=== PATIENT | female | born 2000 | race Caucasian/White ===

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

== ENCOUNTER → 2022-09-30 | Outpatient (CLI) | payer BC ==
--- NOTE | 2022-10-01 11:11 | CA ---
Transthoracic Echo Report Name: Gerson Garcia Age: 22 Gender: F : 2000 Exam Date: 09/30/2022 10:09 Exam Location: [facility] Ht (in): 64 Wt (lb): 113 Ordering Physician: Hesham Whiting MD Attending/Referring Phys: Diana Gaming PAC [employer] Tammy Negron RDCS Procedure CPT: Indications: R42 dizziness and giddiness Cardiac Hx: Technical Quality: Fair Contrast 1: Total Dose (mL): Contrast 2: Total Dose (mL): MEASUREMENTS (Male / Female) Normal Values 2D ECHO LV Diastolic Diameter PLAX 3.6 cm 4.2 - 5.9 / 3.9 - 5.3 cm LV Systolic Diameter PLAX 2.5 cm IVS Diastolic Thickness 0.7 cm 0.6 - 1.0 / 0.6 - 0.9 cm LVPW Diastolic Thickness 0.7 cm 0.6 - 1.0 / 0.6 - 0.9 cm LV Relative Wall Thickness 0.4 RV Internal Dim ED PLAX 3.6 cm LA Volume 24.0 cm??? 18 - 58 / 22 - 52 cm??? M-MODE Aortic Root Diameter MM 2.2 cm LA Systolic Diameter MM 2.5 cm LA Ao Ratio MM 1.1 AV Cusp Separation MM 1.9 cm DOPPLER AV Peak Velocity 120.6 cm/s AV Peak Gradient 5.8 mmHg AV Mean Velocity 85.9 cm/s AV Mean Gradient 3.3 mmHg AV Velocity Time Integral 24.5 cm LVOT Peak Velocity 90.9 cm/s LVOT Peak Gradient 3.3 mmHg LVOT Velocity Time Integral 17.9 cm MV Area PHT 3.5 cm??? Mitral E Point Velocity 102.6 cm/s Mitral A Point Velocity 49.3 cm/s Mitral E to A Ratio 2.1 MV Deceleration Time 216.2 ms MV E' Velocity 11.5 cm/s Mitral E to MV E' Ratio 8.9 FINDINGS Left Ventricle Normal Left ventricular size, wall thickness, systolic function with no obvious regional wall motion abnormalities. Normal Left ventricular diastolic filling pattern. Left ventricular ejection fraction is estimated at 55-60%. Right Ventricle Normal right ventricular size and function. Right ventricular systolic pressure within normal limits. Right Atrium Normal right atrial size. Left Atrium Normal left atrial size. Mitral Valve Structurally normal mitral valve. Trace mitral regurgitation. Aortic Valve Trileaflet aortic valve. No aortic valve stenosis or regurgitation. Tricuspid Valve Structurally normal tricuspid valve. Mild tricuspid regurgitation. Pulmonic Valve No pulmonic stenosis. Trace pulmonic regurgitation. Pericardium No pericardial effusion. Aorta Normal size aortic root and proximal ascending aorta. CONCLUSIONS Normal LV systolic function Prominent posterior pericardial stripe No pericardial effusion Previewed by: Dr. Manuel Baeza MD (Electronically Signed) Final Date: 01 October 2022 11:10
== END | disposition home or self-care (01) ==
LOC: RADECHMAIN 09:34
PROVIDERS: ATTEND Family Medicine
DX: R42 Dizziness and giddiness (principal)
CPT/HCPCS: 93306